=== PATIENT | female | born 1950 | race Caucasian/White ===

== ENCOUNTER → 2020-04-28 | Outpatient (CLI) | payer MEDICARE ==
[~2020-04-28] MED LIST: ANTIVERT/2525 MG PO; ZOFRAN ODT4 MG SL
== END | disposition home or self-care (01) ==
LOC: COVID19 15:34
PROVIDERS: ATTEND Internal Medicine
DX: Z20.822 Contact with and (suspected) exposure to COVID-19 (principal)

== ENCOUNTER → 2021-04-28 | Outpatient (CLI) | payer MEDICARE | END | disposition home or self-care (01) | LOC: US 10:17 | PROVIDERS: ATTEND Nurse Practitioner Primary Care | DX: E04.1 Nontoxic single thyroid nodule (principal) ==

== ENCOUNTER 2021-06-22 14:24 | Emergency (ER) | payer MEDICARE ==
[~2021-06-22] VITALS: Ht 162.5 cm; Wt 73.5 kg
== END 2021-06-22 15:34 | disposition home or self-care (01) ==
LOC: ED 14:24
DX: F13.20 Sedative, hypnotic or anxiolytic dependence, uncomplicated (principal); Z88.8 Allergy status to other drugs, medicaments and biological substances; Z90.49 Acquired absence of other specified parts of digestive tract; Z90.710 Acquired absence of both cervix and uterus

== ENCOUNTER → 2021-07-13 | Outpatient (CLI) | payer MEDICARE ==
[2021-07-13 09:54] LABS: ACT PARTIAL THROMBO TIME 27.6 SECONDS (20.0-32.1)
== END | disposition home or self-care (01) ==
LOC: RAD 10:00 → EDSTATUS 10:00
PROVIDERS: ATTEND Nurse Practitioner Primary Care
DX: E04.1 Nontoxic single thyroid nodule (principal); Z79.01 Long term (current) use of anticoagulants

== ENCOUNTER → 2022-12-27 | Outpatient (CLI) | payer MEDICARE | END | disposition home or self-care (01) | LOC: CT 10:00 | PROVIDERS: ATTEND Nurse Practitioner Primary Care | DX: G31.9 Degenerative disease of nervous system, unspecified (principal); R42 Dizziness and giddiness; R41.3 Other amnesia; W19.XXXA Unspecified fall, initial encounter ==

== ENCOUNTER → 2023-03-08 | Outpatient (CLI) | payer MEDICARE | END | disposition home or self-care (01) | LOC: RAD 10:30 | PROVIDERS: ATTEND Nurse Practitioner Primary Care | DX: M85.851 Other specified disorders of bone density and structure, right thigh (principal); Z78.0 Asymptomatic menopausal state ==

== ENCOUNTER 2024-02-13 12:20 | Inpatient (IN) | payer MEDICARE ==
[~2024-02-13] VITALS: Ht 162.5 cm; Wt 75.6 kg
[2024-02-13 12:33] VITALS: BP 131/44
[2024-02-13] MEDS ORDERED: BUSPAR5 MG PO (12:36)
[2024-02-13] MEDS ORDERED: Avapro300 MG PO (12:36)
[2024-02-13] MEDS ORDERED: NORVASC5 MG PO (12:37)
[2024-02-13] MEDS ORDERED: AUVELITY ER 451 EACH PO (12:37)
[2024-02-13] MEDS ORDERED: K2 PLUS D3 TAB1 EACH PO (12:38)
[2024-02-13] MEDS ORDERED: LIPITOR20 MG PO (12:38)
[2024-02-13] MEDS ORDERED: B12 ACTIVE1000 MCG PO (12:38)
[2024-02-13] MEDS ORDERED: 'TENORMIN50 MG PO (12:39)
[2024-02-13] MEDS ORDERED: TRAZODONE100 MG PO (12:39)
[2024-02-13 13:14] LABS: BASO # 0.1 10*3/uL (0.0-0.1); BASO % 0.5 % (0.0-1.0); EOS # 0.1 10*3/uL (0.0-0.4); EOS % 0.7 % (1.0-4.0); HEMATOCRIT 44.2 % (37.0-47.0); MEAN CELL VOLUME 88.9 fl (81.0-99.0); MEAN CORPUSCULAR HGB 30.4 pg (27.0-31.0); MEAN CORPUSCULAR HGB CONC 34.2 g/dl (33.0-37.0); MEAN PLATELET VOLUME 9.4 fl (9.6-12.3); MONO # 0.6 10*3/uL (0.1-1.0); MONO % 5.7 % (3.0-9.0); NEUT # 9.1 10*3/uL (2.3-7.9); NEUT % 82.8 % (47.0-73.0); PLATELET COUNT AUTOMATED 222 10*3/uL (130-400); RED BLOOD COUNT 4.97 10*6/uL (4.10-5.10)
[2024-02-13 13:37] LABS: POTASSIUM 4.4 mmol/L (3.4-5.1); TOTAL PROTEIN 7.2 gm/dL (6.0-8.0)
[2024-02-13] MEDS ORDERED: AZITHROMYCIN 250 ML IV ONE (14:45)
[2024-02-13] MEDS ORDERED: Ceftriaxone Sodium 1 GM/10 ML SYR IV ONE (15:15)
[2024-02-13] MEDS ORDERED: SODIUM CHLORIDE 0.9% 500 ML IV ONE (15:15)
[2024-02-13 15:46] LABS: BILIRUBIN Negative (Negative); BLOOD Negative (Negative); CLARITY Clear (Clear); COLOR Yellow (Yellow); GLUCOSE Negative (Negative); KETONE Negative (Negative); LEUKO ESTERASE Negative (Negative); NITRITE Negative (Negative); PH 5.5 (4.5-8.0); UROBILINOGEN 0.2 E.U./dl (0.0-1.0)
[2024-02-13 16:08] LABS: WBC 0-2 wbc/hpf (0-5)
[2024-02-13] MEDS ORDERED: MORPHINE Sulfate 2 MG/ML SYR IV PRN (18:15)
[2024-02-13] MEDS ORDERED: Ondansetron Hydrochloride 4 MG/2 ML VIAL IV PRN (18:15)
[2024-02-13] MEDS ORDERED: IOHEXOL 350 MG/ML 100 ML VIAL IV ONE (18:25)
[2024-02-13] MEDS ORDERED: SODIUM CHLORIDE 0.9% 100 ML BAG IV ONE (18:25)
[2024-02-13 19:09] LABS: CHOLESTEROL 190 mg/dL (<200); LDL CHOLESTEROL 103 mg/dL (9-159); TRIGLYCERIDES 172 mg/dl (<150)
[2024-02-13] MEDS ORDERED: ATENOLOL 50 MG TAB PO SCH (22:00)
[2024-02-13] MEDS ORDERED: ATORVASTATIN CALCIUM 20 MG TAB PO SCH (22:00)
[2024-02-13 22:42] VITALS: BP 135/49
[2024-02-14] MEDS ORDERED: Pantoprazole Sodium 40 MG TAB PO SCH (06:00)
[2024-02-14 06:30] VITALS: BP 139/46
[2024-02-14 06:39] LABS: BASO # 0.1 10*3/uL (0.0-0.1); BASO % 0.6 % (0.0-1.0); EOS # 0.2 10*3/uL (0.0-0.4); EOS % 2.2 % (1.0-4.0); HEMATOCRIT 41.2 % (37.0-47.0); MEAN CELL VOLUME 90.4 fl (81.0-99.0); MEAN CORPUSCULAR HGB 30.5 pg (27.0-31.0); MEAN CORPUSCULAR HGB CONC 33.7 g/dl (33.0-37.0); MEAN PLATELET VOLUME 9.5 fl (9.6-12.3); MONO # 0.7 10*3/uL (0.1-1.0); MONO % 8.5 % (3.0-9.0); NEUT # 5.9 10*3/uL (2.3-7.9); NEUT % 69.4 % (47.0-73.0); PLATELET COUNT AUTOMATED 195 10*3/uL (130-400); RED BLOOD COUNT 4.56 10*6/uL (4.10-5.10); WHITE BLOOD COUNT 8.5 10*3/uL (4.8-10.8)
[2024-02-14 07:11] LABS: POTASSIUM 4.2 mmol/L (3.4-5.1); TOTAL PROTEIN 6.5 gm/dL (6.0-8.0)
[2024-02-14 08:03] VITALS: BP 104/39
[2024-02-14] MEDS ORDERED: ASPIRIN, CHEWABLE 81 MG TAB PO SCH (10:00)
[2024-02-14] MEDS ORDERED: amLODIPine besylate 5 MG TAB PO SCH (10:00)
[2024-02-14] MEDS ORDERED: busPIRone Hydrochloride 5 MG TAB PO SCH (10:00)
[2024-02-14] MEDS ORDERED: Enoxaparin Sodium 40 MG/0.4 ML SYR SC SCH (10:00)
[2024-02-14 12:26] VITALS: BP 137/47
[2024-02-14 16:07] VITALS: BP 115/43
[2024-02-14 18:50] VITALS: BP 135/72
[2024-02-14 20:00] VITALS: BP 118/47
[2024-02-14] MEDS ORDERED: ATORVASTATIN CALCIUM 40 MG TABLET PO SCH (22:00)
[2024-02-15] VITALS: BP 112/54
[2024-02-15 05:40] LABS: POTASSIUM 4.6 mmol/L (3.4-5.1)
[2024-02-15 08:00] VITALS: BP 114/49
[2024-02-15 12:00] VITALS: BP 141/49
[2024-02-15] MEDS ORDERED: ASPIRIN ADULT L81 M1 PO (13:13)
[2024-02-15] MEDS ORDERED: ATORVASTATIN CA80 M1 PO (13:13)
[2024-02-15] MEDS ORDERED: ATORVASTATIN CALCIUM 80 MG TAB PO SCH (22:00)
== END 2024-02-15 15:47 | disposition home health service (06) | DRG 69 ==
LOC: ED 12:20 → EDHOLD 17:29 → 4E 02-14 17:57
PROVIDERS: Nurse Practitioner Family; Student in an Organized Health Care Education/Training Program; ADMIT Internal Medicine; ATTEND Internal Medicine
DX: G45.9 Transient cerebral ischemic attack, unspecified (principal); F03.93 Unspecified dementia, unspecified severity, with mood disturbance; F03.94 Unspecified dementia, unspecified severity, with anxiety; E11.65 Type 2 diabetes mellitus with hyperglycemia; N18.9 Chronic kidney disease, unspecified; E11.22 Type 2 diabetes mellitus with diabetic chronic kidney disease; I12.9 Hypertensive chronic kidney disease with stage 1 through stage 4 chronic kidney disease, or unspecified chronic kidney disease; E83.52 Hypercalcemia; E78.5 Hyperlipidemia, unspecified; F32.A Depression, unspecified; F41.9 Anxiety disorder, unspecified; Z90.49 Acquired absence of other specified parts of digestive tract; Z90.710 Acquired absence of both cervix and uterus; Z82.0 Family history of epilepsy and other diseases of the nervous system; Z79.899 Other long term (current) drug therapy; Z88.5 Allergy status to narcotic agent